=== PATIENT | male | born 1955 ===

== ENCOUNTER 2023-11-29 05:49 | Inpatient (IN) | payer OTHER ==
[2023-11-22 08:34] LABS: PH,URINE 5.5 (5.0-8.0); URINE APPEARANCE Clear; URINE BILIRRUBIN Negative (NEGATIVE); URINE BLOOD Negative; URINE COLOR Yellow; URINE GLUCOSE Negative (NEGATIVE); URINE KETONE Negative (NEGATIVE); URINE LEUKOCYTE Negative; URINE NITRATE Negative; URINE PROTEIN Negative (NEGATIVE); URINE UROBILINOGEN 0.2 E.U./dl
[2023-11-22 08:39] LABS: URINE EPITHELIAL CELLS 1.6 uL (0.0-38.8); URINE WBC 2.1 uL (0.0-23.2)
[2023-11-22 08:54] LABS: HEMOGLOBIN 13.6 g/dL (13-16.00); MEAN CELL VOLUME 85.4 fL (80.0-100.00); MEAN CORPUSCULAR HEMOGLOBIN 28.3 pg (27.00-32.0); MEAN CORPUSCULAR HGB CONC 33.2 g/dl (32.0-36.0); PLATELET COUNT 203 K/uL (150-450); RED CELL DISTRIBUTION WIDTH 13.9 % (11.5-14.5)
[2023-11-22 09:12] LABS: URINE CAST 0.15 uL (0.0-1.40); URINE RBC 1.2 uL (0.0-20.8)
[2023-11-22 09:17] LABS: INR 0.96; PARTIAL THROMBOPLASTIN TIME 27.4 SECONDS (22.0-34.0); PROTHROMBIN TIME 10.1 SECONDS (9.0-11.5)
[2023-11-22 09:33] LABS: ALBUMIN 3.9 gm/dL (3.4-5.0); BILIRUBIN TOTAL 0.47 mg/dL (0.3-1.2); CALCIUM 9.6 mg/dL (8.5-10.1); CREATININE SERUM 0.88 mg/dL (0.70-1.30); GFR 85.86; GLOBULINA 3.1 G/DL (2.4-3.5); POTASSIUM 5.06 mEq/L (3.5-5.1)
[~2023-11-29] VITALS: Ht 152.4 cm; Wt 89.8 kg
[~2023-11-29 05:49] MED LIST: ATACAND4 MG PO; CHILDREN'S ASPI81 MG PO; LIPITOR20 MG PO; NORVASC5 MG PO; PEPCID AC20 MG PO; SYNTHROID75 MCG PO; TOPROL XL50 M1 PO; ZYLOPRIM100 M1 PO
[2023-11-29] MEDS ORDERED: BUPIVACAINE HCL/MPF 0.5% 30ML VIAL ONE (06:45)
[2023-11-29] MEDS ORDERED: VANCOMYCIN HCL 1,000 MG VIAL ONE (06:45)
[2023-11-29] MEDS ORDERED: KETOROLAC TROMETHAMINE 60 MG VIAL IM ONE (06:45)
[2023-11-29] MEDS ORDERED: LIDOCAINE HCL 1%/EPINEPHRINE 20ML VIAL IJ ONE (06:46)
[2023-11-29] MEDS ORDERED: CEFAZOLIN SODIUM 1,000 MG VIAL ONE (09:54)
[2023-11-29] MEDS ORDERED: TRANEXAMIC ACID 100MG/1ML (1000MG) AMPUL IV ONE (09:55)
[2023-11-29] MEDS ORDERED: OxyCODONE HCL/APAP UD (PERCOCET) PO PRN (12:30)
[2023-11-29] MEDS ORDERED: ONDANSETRON HCL 2 MG/ML VIAL IV PRN (12:30)
[2023-11-29] MEDS ORDERED: MORPHINE SULFATE 4 MG/ML VIAL IV SCH (18:00)
[2023-11-29] MEDS ORDERED: CEFAZOLIN SODIUM 1,000 MG VIAL IV SCH (18:00)
[2023-11-29] MEDS ORDERED: LOSARTAN POTASSIUM 50 MG TABLET PO ONE (20:25)
[2023-11-29] MEDS ORDERED: GABAPENTIN 100 MG CAPSULE PO SCH (21:00)
[2023-11-29] MEDS ORDERED: LOSARTAN/HYDROCHLOROTHIAZIDE 1 UDTAB TABLET PO SCH (21:00)
[2023-11-29] MEDS ORDERED: ORPHENADRINE CITRATE 100 MG TABLET PO SCH (21:00)
[2023-11-29] MEDS ORDERED: FAMOTIDINE/PF 20 MG/2 ML VIAL IV SCH (21:00)
[2023-11-30] MEDS ORDERED: LEVOTHYROXINE SODIUM 75 MCG TABLET PO SCH (06:00)
[2023-11-30 07:47] LABS: HEMATOCRIT 37.8 % (39.0-48.0); HEMOGLOBIN 12.7 g/dL (13-16.00); MEAN CORPUSCULAR HEMOGLOBIN 28.5 pg (27.00-32.0); MEAN CORPUSCULAR HGB CONC 33.5 g/dl (32.0-36.0); PLATELET COUNT 176 K/uL (150-450); RED BLOOD COUNT 4.45 M/uL (4.00-6.00)
[2023-11-30] MEDS ORDERED: AMLODIPINE BESYLATE 5 MG TABLET PO SCH (09:00)
[2023-11-30] MEDS ORDERED: METOPROLOL SUCCINATE 50 MG TAB.SR.24H PO SCH (09:00)
[2023-11-30] MEDS ORDERED: ENOXAPARIN SODIUM 30 MG/0.3 ML SYRINGE SUBCUTANEO SCH (09:00)
[2023-11-30] MEDS ORDERED: LOSARTAN POTASSIUM 50 MG TABLET PO SCH (21:00)
[2023-12-01 08:37] LABS: HEMATOCRIT 36.4 % (39.0-48.0); HEMOGLOBIN 12.2 g/dL (13-16.00); MEAN CELL VOLUME 85.8 fL (80.0-100.00); MEAN CORPUSCULAR HEMOGLOBIN 28.7 pg (27.00-32.0); MEAN CORPUSCULAR HGB CONC 33.5 g/dl (32.0-36.0); PLATELET COUNT 162 K/uL (150-450); RED BLOOD COUNT 4.24 M/uL (4.00-6.00)
[2023-12-01] MEDS ORDERED: FAMOtidine 20 MG TABLET PO SCH (09:00)
== END 2023-12-01 19:10 | DRG 470 ==
LOC: CIR.AMB 05:49 → EDSTATUS 08:00 → CIR.AMB 08:00 → SURH 08:00 → CIR.AMB 10:00 → O/R 14:21 → SURH 14:21
PROVIDERS: ADMIT Orthopaedic Surgery; ATTEND Orthopaedic Surgery
PROC: 0SRD0JZ Replacement of Left Knee Joint with Synthetic Substitute, Open Approach (ICD-10-PCS; principal; 2023-11-29 10:00)
DX: M17.12 Unilateral primary osteoarthritis, left knee (principal); M85.662 Other cyst of bone, left lower leg; I10 Essential (primary) hypertension